=== PATIENT | male | born 1990 | race Caucasian/White ===

== ENCOUNTER 2024-01-01 19:23 | Emergency (ER) | payer BC ==
[~2024-01-01] VITALS: Ht 188 cm; Wt 152.3 kg
[2024-01-01 19:35] VITALS: TEMP 98.2
[2024-01-01 20:15] LABS: BASO # 0.1 K/mm3 (0.0-0.2); BASO % 0.5 % (0.0-2.0); EOS # 0.4 K/mm3 (0.0-0.7); EOS % 3.5 % (0.0-4.0); GRAN % 66.3 % (42.2-75.2); HEMATOCRIT 45.1 % (42.0-52.0); HEMOGLOBIN 15.7 g/dl (13.5-18.0); LYMPH # 2.2 K/mm3 (1.2-3.4); MEAN CELL VOLUME 82 fl (80.0-100.0); MEAN CORPUSCULAR HEMOGLOBIN 29 pg (27-31); MEAN CORPUSCULAR HGB CONC 35 g/dl (33.0-37.0); MEAN PLATELET VOLUME 8.9 fl (7.4-10.4); MONO # 0.9 K/mm3 (0.1-0.6); MONO % 8.2 % (1.7-9.3); PLATELET COUNT 297 K/mm3 (130-400); RED BLOOD COUNT 5.47 M/mm3 (4.20-5.60)
[2024-01-01 20:22] LABS: INR 1.1 (0.8-3.0); PROTHROMBIN TIME 11.9 SECONDS (9.7-12.8)
[2024-01-01 20:32] LABS: ALBUMIN 4.2 g/dL (3.5-5.0); BILIRUBIN,TOTAL 0.8 mg/dL (0.2-1.2); CALCIUM 9.7 mg/dL (8.4-10.2); CREATININE, serum 0.99 mg/dL (0.72-1.25); POTASSIUM 4.3 mEq/L (3.5-4.5); TOTAL PROTEIN 6.9 g/dl (6.2-8.1)
[2024-01-01] MEDS ORDERED: PERIOSTAT PO (20:49)
[2024-01-01 20:58] VITALS: BP 143/83; PULSE 84
== END 2024-01-01 20:58 | disposition home or self-care (01) ==
LOC: COL.ER 19:23
PROVIDERS: Family Medicine
DX: M25.471 Effusion, right ankle (principal)